=== PATIENT | female | born 1955 | race African-American/Black ===

== ENCOUNTER 2017-08-16 11:56 | Outpatient (CLI) | payer OTHER ==
[2017-08-16] MEDS ORDERED: Gadobenate Dimeglumine 529 MG/1 ML (20ML VIAL) ONE (13:43)
== END 2017-08-16 11:57 | disposition home or self-care (01) ==
LOC: BICMRI 11:56
PROVIDERS: ATTEND Nurse Practitioner Family
DX: M46.96 Unspecified inflammatory spondylopathy, lumbar region (principal); M54.16 Radiculopathy, lumbar region; G95.89 Other specified diseases of spinal cord; M99.83 Other biomechanical lesions of lumbar region
CPT/HCPCS: 72158; A9579

== ENCOUNTER 2017-11-21 10:11 | Outpatient (CLI) | payer OTHER | END 2017-11-21 10:12 | disposition home or self-care (01) | LOC: BICMAMMO 10:11 | PROVIDERS: ATTEND Student in an Organized Health Care Education/Training Program | DX: Z12.31 Encounter for screening mammogram for malignant neoplasm of breast (principal); Z80.3 Family history of malignant neoplasm of breast | CPT/HCPCS: 77067 ==

== ENCOUNTER 2018-12-13 13:35 | Outpatient (CLI) | payer OTHER ==
--- NOTE | 2018-12-13 14:39 | MMO ---
Bilateral MAMMO Bilat Screen DDI. CLINICAL HISTORY: Patient is 63 years old and is seen for screening. The patient has the following family history of breast cancer: maternal aunt, malignant (generic). The patient has no personal history of cancer. VIEWS: The views performed were: bilateral craniocaudal and bilateral mediolateral oblique. FILMS COMPARED: The present examination has been compared to prior imaging studies performed at 11/16/2015 and 11/20/2016. This study has been interpreted with the assistance of computer-aided detection. MAMMOGRAM FINDINGS: There are scattered fibroglandular densities. There are no suspicious masses, suspicious calcifications, or new areas of architectural distortion. IMPRESSION: THERE IS NO MAMMOGRAPHIC EVIDENCE OF MALIGNANCY. A ROUTINE FOLLOW-UP MAMMOGRAM IN 1 YEAR IS RECOMMENDED. ACR BI-RADS Category 1 - Negative MAMMOGRAPHY NOTE: 1. A negative mammogram report should not delay a biopsy if a dominant of clinically suspicious mass is present. 2. Approximately 10% to 15% of breast cancers are not detected by mammography. 3. Adenosis and dense breasts may obscure an underlying neoplasm. Reported by: AMIE VILLAGRAN MD Electonically Signed: [id number]
== END 2018-12-13 13:36 | disposition home or self-care (01) ==
LOC: SCSMAMMO 13:35
PROVIDERS: ATTEND Student in an Organized Health Care Education/Training Program
DX: Z12.31 Encounter for screening mammogram for malignant neoplasm of breast (principal); Z80.3 Family history of malignant neoplasm of breast
CPT/HCPCS: 77067

== ENCOUNTER 2019-12-31 12:41 | Outpatient (CLI) | payer OTHER ==
--- NOTE | 2019-12-31 13:14 | MMO ---
Bilateral MAMMO Bilat Screen DDI. CLINICAL HISTORY: Patient is 64 years old and is seen for screening. The patient has the following family history of breast cancer: maternal aunt, malignant (generic). The patient has no personal history of cancer. VIEWS: The views performed were: bilateral craniocaudal and bilateral mediolateral oblique. FILMS COMPARED: The present examination has been compared to prior imaging studies performed at [facility] on 12/13/2018, and at [facility] on 11/12/2014, 11/16/2015 and 11/20/2016. This study has been interpreted with the assistance of computer-aided detection. MAMMOGRAM FINDINGS: There are scattered fibroglandular densities. There are no suspicious masses, suspicious calcifications, or new areas of architectural distortion. IMPRESSION: THERE IS NO MAMMOGRAPHIC EVIDENCE OF MALIGNANCY. A ROUTINE FOLLOW-UP MAMMOGRAM IN 1 YEAR IS RECOMMENDED. ACR BI-RADS Category 1 - Negative MAMMOGRAPHY NOTE: 1. A negative mammogram report should not delay a biopsy if a dominant of clinically suspicious mass is present. 2. Approximately 10% to 15% of breast cancers are not detected by mammography. 3. Adenosis and dense breasts may obscure an underlying neoplasm. Reported by: EZRA WILKS MD Electonically Signed: [id number]
== END 2019-12-31 12:42 | disposition home or self-care (01) ==
LOC: BICMAMMO 12:41
PROVIDERS: ATTEND Student in an Organized Health Care Education/Training Program
DX: Z12.31 Encounter for screening mammogram for malignant neoplasm of breast (principal); Z80.3 Family history of malignant neoplasm of breast
CPT/HCPCS: 77067

== ENCOUNTER 2020-04-06 10:47 | Outpatient (CLI) | payer OTHER ==
--- NOTE | 2020-04-06 12:18 | MRI ---
MRI lumbar spine noncontrast: HISTORY: Lumbar radicular pain. Low back pain radiates to the right hip and down the right leg. COMPARISON: 08/16/2017. FINDINGS: Appropriate T1 marrow signal intensity of the lumbar vertebra. Lumbar spine vertebral body heights ar e maintained. There is no fracture. Vertebral body hemangioma at L1. Appropriate signal intensity of the paraspinal muscles and solid organs. Note is made of a fatty filum terminale. Conus medullaris terminates at the inferior aspect of L1. No significant STIR hyperintensity to suggest vertebral body edema or ligamentous injury. 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 Redemonstration of a T1 isointense, T2 hyperintense focus along the posterior epidural fat at the L2 level. This lesion measures 0.7 x 0.6 x 0.8 cm. T12-L1:Adequate disc hydration. No posterior disc abnormalities. No significant central canal stenosi s. Mild ligamentum flavum thickening and facet hypertrophy are present. L1-L2:Adequate disc hydration. No posterior disc abnormality. There is no significant central canal s tenosis. There is mild ligamentum flavum thickening and facet hypertrophy. L2-L3:Disc desiccation without significant loss of disc space height. Broad-based disc bulge, ligamen marshal flavum thickening, facet hypertrophy and posterior epidural lesion result in moderate stenosis of the thecal sac. Mild bilateral neural foraminal narrowing. L3-L4:Adequate disc hydration. No significant loss of disc space height. Broad-based disc bulge, liga mentum flavum thickening and facet hypertrophy result in mild to moderate central canal stenosis. Mild to moderate bilateral neural foraminal narrowing. L4-L5:Adequate disc hydration. No significant loss of disc space height. Broad-based disc bulge minim ally contacts the ventral thecal sac. Mild central canal stenosis. There is bilateral ligamentum flavum thickening and facet hypertrophy. Mild to moderate bilateral neural foraminal narrowing. L5-S1:Adequate disc hydration. No posterior disc abnormality. There is bilateral ligamentum flavum th ickening and facet hypertrophy. There is no significant central canal stenosis. Mild bilateral neural foraminal narrowing. IMPRESSION: 1. 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 2. Stable posterior epidural mass at the L2-L3 level. 3. Varying degrees of central canal stenosis and neural foraminal narrowing as detailed above. Transcribed Date/Time: 04/06/2020 12:42 PM
== END 2020-04-06 10:48 | disposition home or self-care (01) ==
LOC: BICMRI 10:47
PROVIDERS: ATTEND Nurse Practitioner Family
DX: M54.16 Radiculopathy, lumbar region (principal); M48.061 Spinal stenosis, lumbar region without neurogenic claudication; M48.07 Spinal stenosis, lumbosacral region; G95.89 Other specified diseases of spinal cord
CPT/HCPCS: 72148

== ENCOUNTER 2020-07-15 09:15 | Inpatient (IN) | payer OTHER ==
[2020-07-19 12:40] VITALS: BMI 46.0
[2020-08-05] MEDS ORDERED: Thrombin 5000 UNITS/5 ML VIAL ONE (08:53)
[2020-08-05] MEDS ORDERED: PHENYLEPHRINE-NS 100 MCG/ML 10 ML SYRINGE ONE (09:25)
[2020-08-05] MEDS ORDERED: Rocuronium Bromide 10 MG/ML (10ML VIAL) ONE (09:25)
[2020-08-05] MEDS ORDERED: Ondansetron PF 4 MG/2 ML Vial ONE (09:25)
[2020-08-05] MEDS ORDERED: ePHEDrine 50 MG/ML VIAL ONE (09:25)
[2020-08-05] MEDS ORDERED: Lidocaine 1% PF 5 ML VIAL ONE (09:25)
[2020-08-05] MEDS ORDERED: Glycopyrrolate 0.2 MG/ML 5 ML SYRINGE ONE (09:25)
[2020-08-05] MEDS ORDERED: PROPOFOL 200 MG/20 ML VIAL ONE (09:25)
[2020-08-05] MEDS ORDERED: Dexamethasone 20 MG/5 ML VIAL ONE (09:25)
[2020-08-05] MEDS ORDERED: Fentanyl 100 MCG/2 ML VIAL ONE ×4 (09:33→13:33)
[2020-08-05] MEDS ORDERED: Bisacodyl 10 MG SUPP PR PRN (09:36)
[2020-08-05] MEDS ORDERED: Mag-Al 1200 mg/1200 mg/30 ML UDCUP PO PRN (09:36)
[2020-08-05] MEDS ORDERED: Milk Of Magnesia 30 ML UDCUP PO PRN (09:36)
[2020-08-05] MEDS ORDERED: Promethazine HCl 25 MG/ML VIAL IM PRN (11:49)
[2020-08-05] MEDS ORDERED: Morphine Sulfate 2 MG/ML SYRINGE SLOW IVP PRN (11:49)
[2020-08-05] MEDS ORDERED: Ondansetron HCl/PF 4 MG/2 ML Vial IVP PRN (11:49)
[2020-08-05] MEDS ORDERED: HYDROmorphone 2 MG/ML VIAL SLOW IVP PRN (11:49)
[2020-08-05] MEDS ORDERED: Promethazine HCl 25 MG/ML VIAL SLOW IVP PRN (11:49)
[2020-08-05] MEDS ORDERED: PACU-Morphine 4MG/ML VIAL SLOW IVP PRN (11:49)
[2020-08-05] MEDS ORDERED: HYDROmorphone 0.5 MG/0.5 ML SYRINGE ONE ×4 (12:17→13:00)
[2020-08-05] MEDS ORDERED: tiZANidine HCl 4 MG TAB ONE (12:48)
[2020-08-05] MEDS: Sodium Chloride 0.9% 1,000 ML IV SCH ×2 (16:16→22:00)
[2020-08-05] MEDS: HYDROcodone/Acetaminophen 7.5/325 mg Tablet PO PRN ×2 (16:16→23:19)
[2020-08-05] MEDS: CEFAZOLIN 2 GM in Premix Bag 1 BAG IVPB SCH (16:18)
[2020-08-05] MEDS: Morphine 2 MG/ML VIAL SLOW IVP PRN ×3 (16:20→23:18)
[2020-08-05] MEDS: tiZANidine HCl 4 MG TAB PO PRN (17:24)
[2020-08-05] MEDS ORDERED: Furosemide 20 MG TAB PO PRN (17:49)
[2020-08-05] MEDS: Acetaminophen 325 MG TAB PO PRN (20:00)
[2020-08-05] MEDS: Acetaminophen/Codeine 30-300mg Tablet PO PRN (20:00)
[2020-08-05] MEDS: Atorvastatin Calcium 10 MG TAB PO SCH (21:34)
[2020-08-05] MEDS: Amitriptyline HCl 100 MG TAB PO SCH (21:34)
[2020-08-05] MEDS: busPIRone HCl 10 MG TAB PO SCH (21:35)
[2020-08-06] MEDS: CEFAZOLIN 2 GM in Premix Bag 1 BAG IVPB SCH (00:54)
[2020-08-06] MEDS: tiZANidine HCl 4 MG TAB PO PRN ×3 (00:54→19:11)
[2020-08-06] MEDS: Levothyroxine Sodium 50 MCG TAB PO SCH (06:24)
[2020-08-06] MEDS: HYDROcodone/Acetaminophen 7.5/325 mg Tablet PO PRN ×2 (08:22→15:09)
[2020-08-06] MEDS: busPIRone HCl 10 MG TAB PO SCH ×2 (08:22→20:24)
[2020-08-06] MEDS: Hydrochlorothiazide 25 MG TAB PO SCH (08:22)
[2020-08-06] MEDS ORDERED: FLU VACC QS2020-21(6MOS UP)/PF 60 MCG/0.5 ML SYRINGE IM ONE (09:00)
[2020-08-06] MEDS: Acetaminophen/Codeine 30-300mg Tablet PO PRN ×2 (12:16→19:11)
[2020-08-06] MEDS: Sodium Chloride 0.9% 1,000 ML IV SCH (15:04)
[2020-08-06] MEDS: Acetaminophen 325 MG TAB PO PRN (15:12)
[2020-08-06] MEDS: Amitriptyline HCl 100 MG TAB PO SCH (20:22)
[2020-08-06] MEDS: Atorvastatin Calcium 10 MG TAB PO SCH (20:22)
[2020-08-07] MEDS: HYDROcodone/Acetaminophen 7.5/325 mg Tablet PO PRN ×3 (00:13→17:23)
[2020-08-07] MEDS: Acetaminophen 325 MG TAB PO PRN ×2 (00:14→20:35)
[2020-08-07] MEDS: Sodium Chloride 0.9% 1,000 ML IV SCH ×2 (04:29→16:11)
[2020-08-07] MEDS: Levothyroxine Sodium 50 MCG TAB PO SCH (06:05)
[2020-08-07] MEDS: busPIRone HCl 10 MG TAB PO SCH ×2 (08:39→20:35)
[2020-08-07] MEDS: Hydrochlorothiazide 25 MG TAB PO SCH (10:32)
[2020-08-07] MEDS: tiZANidine HCl 4 MG TAB PO PRN ×2 (12:43→20:35)
[2020-08-07] MEDS: Amitriptyline HCl 100 MG TAB PO SCH (20:33)
[2020-08-07] MEDS: Acetaminophen/Codeine 30-300mg Tablet PO PRN (20:34)
[2020-08-07] MEDS: Atorvastatin Calcium 10 MG TAB PO SCH (20:35)
[2020-08-08] MEDS: Sodium Chloride 0.9% 1,000 ML IV SCH ×2 (06:14→18:02)
[2020-08-08] MEDS: Levothyroxine Sodium 50 MCG TAB PO SCH (06:44)
[2020-08-08] MEDS: Hydrochlorothiazide 25 MG TAB PO SCH (09:11)
[2020-08-08] MEDS: Acetaminophen/Codeine 30-300mg Tablet PO PRN ×2 (09:11→14:41)
[2020-08-08] MEDS: busPIRone HCl 10 MG TAB PO SCH ×2 (09:11→20:25)
[2020-08-08] MEDS: tiZANidine HCl 4 MG TAB PO PRN ×2 (14:41→21:45)
[2020-08-08] MEDS: HYDROcodone/Acetaminophen 7.5/325 mg Tablet PO PRN (20:23)
[2020-08-08] MEDS: Atorvastatin Calcium 10 MG TAB PO SCH (20:24)
[2020-08-08] MEDS: Amitriptyline HCl 100 MG TAB PO SCH (20:25)
[2020-08-09] MEDS: Levothyroxine Sodium 50 MCG TAB PO SCH (05:06)
[2020-08-09] MEDS: Sodium Chloride 0.9% 1,000 ML IV SCH ×2 (06:29→16:56)
[2020-08-09] MEDS: Acetaminophen/Codeine 30-300mg Tablet PO PRN ×3 (07:02→22:08)
[2020-08-09] MEDS: HYDROcodone/Acetaminophen 7.5/325 mg Tablet PO PRN ×2 (09:14→18:23)
[2020-08-09] MEDS: Hydrochlorothiazide 25 MG TAB PO SCH (09:17)
[2020-08-09] MEDS: busPIRone HCl 10 MG TAB PO SCH ×2 (09:17→21:07)
[2020-08-09] MEDS ORDERED: Acetaminophen 325 MG TAB PO PRN (16:43)
[2020-08-09] MEDS ORDERED: Milk Of Magnesia 30 ML UDCUP PO PRN (16:45)
[2020-08-09] MEDS ORDERED: Mag-Al 1200 mg/1200 mg/30 ML UDCUP PO PRN (16:45)
[2020-08-09] MEDS ORDERED: Bisacodyl 10 MG SUPP PR PRN (16:45)
[2020-08-09] MEDS ORDERED: Furosemide 20 MG TAB PO PRN (16:46)
[2020-08-09] MEDS ORDERED: Morphine 2 MG/ML VIAL SLOW IVP PRN (16:48)
[2020-08-09] MEDS: tiZANidine HCl 4 MG TAB PO PRN (16:54)
[2020-08-09] MEDS: Amitriptyline HCl 100 MG TAB PO SCH (21:08)
[2020-08-09] MEDS: Atorvastatin Calcium 10 MG TAB PO SCH (21:09)
[2020-08-10] MEDS: HYDROcodone/Acetaminophen 7.5/325 mg Tablet PO PRN ×3 (01:50→16:40)
[2020-08-10] MEDS: tiZANidine HCl 4 MG TAB PO PRN ×2 (01:51→21:25)
[2020-08-10] MEDS: Levothyroxine Sodium 50 MCG TAB PO SCH (06:56)
[2020-08-10] MEDS: Sodium Chloride 0.9% 1,000 ML IV SCH ×2 (07:24→19:25)
[2020-08-10] MEDS: Hydrochlorothiazide 25 MG TAB PO SCH (08:25)
[2020-08-10] MEDS: busPIRone HCl 10 MG TAB PO SCH ×2 (08:26→21:22)
[2020-08-10] MEDS: Acetaminophen/Codeine 30-300mg Tablet PO PRN (21:20)
[2020-08-10] MEDS: Amitriptyline HCl 100 MG TAB PO SCH (21:22)
[2020-08-10] MEDS: Atorvastatin Calcium 10 MG TAB PO SCH (21:23)
[2020-08-11] MEDS: Levothyroxine Sodium 50 MCG TAB PO SCH (05:42)
[2020-08-11] MEDS: tiZANidine HCl 4 MG TAB PO PRN ×2 (06:01→16:53)
[2020-08-11] MEDS: busPIRone HCl 10 MG TAB PO SCH ×2 (09:31→21:05)
[2020-08-11] MEDS: Hydrochlorothiazide 25 MG TAB PO SCH (09:31)
[2020-08-11] MEDS: Sodium Chloride 0.9% 1,000 ML IV SCH ×2 (09:31→22:45)
[2020-08-11] MEDS: HYDROcodone/Acetaminophen 7.5/325 mg Tablet PO PRN ×2 (11:36→17:33)
[2020-08-11] MEDS: Amitriptyline HCl 100 MG TAB PO SCH (21:04)
[2020-08-11] MEDS: Atorvastatin Calcium 10 MG TAB PO SCH (21:05)
[2020-08-12] MEDS: HYDROcodone/Acetaminophen 7.5/325 mg Tablet PO PRN ×2 (04:04→18:17)
[2020-08-12] MEDS: Levothyroxine Sodium 50 MCG TAB PO SCH (04:05)
[2020-08-12] MEDS: busPIRone HCl 10 MG TAB PO SCH ×2 (08:24→20:31)
[2020-08-12] MEDS: Acetaminophen/Codeine 30-300mg Tablet PO PRN ×2 (10:28→15:45)
[2020-08-12] MEDS: Hydrochlorothiazide 25 MG TAB PO SCH (10:31)
[2020-08-12] MEDS: Sodium Chloride 0.9% 1,000 ML IV SCH (11:40)
[2020-08-12] MEDS: Amitriptyline HCl 100 MG TAB PO SCH (20:31)
[2020-08-12] MEDS: Atorvastatin Calcium 10 MG TAB PO SCH (20:31)
[2020-08-13] MEDS: Sodium Chloride 0.9% 1,000 ML IV SCH ×2 (00:24→14:35)
[2020-08-13] MEDS: Acetaminophen/Codeine 30-300mg Tablet PO PRN ×2 (02:40→13:54)
[2020-08-13] MEDS: tiZANidine HCl 4 MG TAB PO PRN (05:41)
[2020-08-13] MEDS: Levothyroxine Sodium 50 MCG TAB PO SCH (05:41)
[2020-08-13] MEDS: Hydrochlorothiazide 25 MG TAB PO SCH (08:37)
[2020-08-13] MEDS: busPIRone HCl 10 MG TAB PO SCH (09:09)
[2020-08-13 12:14] VITALS: BP 133/85; TEMP 98.3
== END 2020-08-13 15:08 | DRG 516 ==
LOC: SJJU 08-05 07:39 → SDC 08-05 07:39 → EDSTATUS 08-05 09:15 → SJJU 08-05 09:36 → SDC 08-05 09:36 → SJJU 08-08 19:45 → SDC 08-08 19:45 → SJJU 08-09 05:48 → SDC 08-09 05:48
PROVIDERS: ADMIT Surgery; ATTEND Surgery
PROC: 01NB0ZZ Release Lumbar Nerve, Open Approach (ICD-10-PCS; principal; 2020-08-05)
DX: M48.061 Spinal stenosis, lumbar region without neurogenic claudication (principal); Z20.822 Contact with and (suspected) exposure to COVID-19; I10 Essential (primary) hypertension; E78.5 Hyperlipidemia, unspecified; E03.9 Hypothyroidism, unspecified; E66.9 Obesity, unspecified; F32.9 Major depressive disorder, single episode, unspecified; F41.9 Anxiety disorder, unspecified; Z68.42 Body mass index [BMI] 45.0-49.9, adult; Z90.710 Acquired absence of both cervix and uterus
CPT/HCPCS: 76000; 93970; J0690; J1100; J1170; J2270; J2405; J2704; J3010; J3370; J3490

== ENCOUNTER 2020-08-02 09:53 | Outpatient (CLI) | payer OTHER ==
[2020-07-15 12:14] LABS: Anion Gap 14 mmol/L (10-20); BUN (Urea Nitrogen) 12 mg/dL (9.8-20.1); Calc. Creatinine Clearance 0 mL/min (70-130); Calcium 9.6 mg/dL (7.8-10.44); Carbon Dioxide 30 mmol/L (23-31); Chloride 103 mmol/L (98-107); Glucose 85 mg/dL (80-115); Potassium 4.9 mmol/L (3.5-5.1); Sodium 142 mmol/L (136-145)
[2020-07-15 12:15] LABS: Hemoglobin 12.4 g/dL (12.0-15.5); Mean Corpuscular HGB CONC 30.3 g/dL (32.0-36.0); Mean Corpuscular Volume 75.7 fl (81.6-98.3); Platelet Count 227 10x3/uL (150-450); RBC Distribution Width 16.2 % (11.5-14.5); White Blood Cell (WBC) Count 9.3 10x3/uL (3.5-10.5)
[2020-07-15 12:36] LABS: INR-International Normal Ratio 0.9; PTT 29.5 sec (22.0-33.0); Prothrombin Time 9.7 sec (9.5-12.1)
[2020-07-15 23:10] LABS: SARS-CoV-2 PCR by NAA Not Detected (NotDetected)
--- NOTE | 2020-07-21 15:13 | EKG ---
Test Reason : Blood Pressure : / mmHG Vent. Rate : 067 BPM Atrial Rate : 067 BPM P-R Int : 198 ms QRS Dur : 076 ms QT Int : 430 ms P-R-T Axes : 062 040 062 degrees QTc Int : 454 ms Normal sinus rhythm Low voltage QRS Cannot rule out Anterior infarct , age undetermined Abnormal ECG No previous ECGs available Confirmed by MARGARITA JAMES (2) on 07/21/2020 3:12:55 PM Referred By: [facility] Confirmed By:MARGARITA JAMES
[2020-08-03 01:54] LABS: SARS-CoV-2 PCR by NAA Not Detected (NotDetected)
== END 2020-08-02 09:54 | disposition home or self-care (01) ==
LOC: LABBT 09:53
PROVIDERS: ATTEND Surgery
DX: Z01.818 Encounter for other preprocedural examination (principal); Z01.812 Encounter for preprocedural laboratory examination; M54.16 Radiculopathy, lumbar region; M48.062 Spinal stenosis, lumbar region with neurogenic claudication; Z20.822 Contact with and (suspected) exposure to COVID-19
CPT/HCPCS: 80048; 85027; 85610; 85730; 87635; 93005; 93010; U0003; U0005

== ENCOUNTER 2021-01-20 | Outpatient (CLI) | payer OTHER | END 2021-01-20 10:36 | disposition home or self-care (01) | DX: Z12.31 Encounter for screening mammogram for malignant neoplasm of breast (principal); Z80.3 Family history of malignant neoplasm of breast | CPT/HCPCS: 77063; 77067 ==

== ENCOUNTER 2021-10-26 20:20 | Emergency (ER) | payer OTHER ==
[2021-10-26] MEDS ORDERED: HYDROcodone/Acetaminophen 5/325 mg Tablet ONE (21:52)
== END 2021-10-26 22:07 | disposition home or self-care (01) ==
LOC: ERS 20:20
DX: S63.502A Unspecified sprain of left wrist, initial encounter (principal); E03.9 Hypothyroidism, unspecified; E78.5 Hyperlipidemia, unspecified; E78.00 Pure hypercholesterolemia, unspecified; I10 Essential (primary) hypertension; Z87.891 Personal history of nicotine dependence; W01.0XXA Fall on same level from slipping, tripping and stumbling without subsequent striking against object, initial encounter

== ENCOUNTER 2021-11-24 14:34 | Emergency (ER) | payer OTHER ==
[2021-11-24 16:31] LABS: #Lymphocytes 2.8 thou/uL (1.20-3.40); #Monocytes 1.3 thou/uL (0.11-0.59); #Neutrophils 12.6 thou/uL (1.40-6.50); %Eosinophils 0.1 % (0.0-10.0); %Monocytes 7.6 % (0.0-10.0); %Neutrophils 75.3 % (42.0-75.0); Mean Corpuscular HGB CONC 31.7 g/dL (32.0-36.0); Mean Corpuscular Hemoglobin 25.1 pg (27.0-31.0); Mean Corpuscular Volume 79.4 fL (78.0-98.0); Platelet Count 236 thou/uL (130-400); RBC Distribution Width 15.4 % (11.5-14.5); Red Blood Cell (RBC) Count 4.75 mill/uL (4.20-5.40); White Blood Cell (WBC) Count 16.7 thou/uL (4.8-10.8)
[2021-11-24 16:54] LABS: Chloride 100 mmol/L (98-107); Potassium 3.6 mmol/L (3.5-5.1); Sodium 140 mmol/L (136-145)
[2021-11-24 16:55] LABS: ALT (SGPT) 7 U/L (8-55); AST (SGOT) 12 U/L (5-34); Alkaline Phosphatase 102 U/L (40-110); Anion Gap 17 mmol/L (10-20); BUN (Urea Nitrogen) 9 mg/dL (9.8-20.1); Bilirubin, Total 1.1 mg/dL (0.2-1.2); Calc. Creatinine Clearance 0 mL/min (70-130); Calcium 9.5 mg/dL (7.8-10.44); Carbon Dioxide 27 mmol/L (23-31); Globulin 3.7 g/dL (2.4-3.5); Glucose 120 mg/dL (80-115); Protein, Total 7.7 g/dL (5.8-8.1)
[2021-11-24] MEDS ORDERED: Ketorolac Tromethamine 30 MG/ML VIAL ONE (18:23)
== END 2021-11-24 19:23 | disposition home or self-care (01) ==
LOC: ERS 14:34
DX: M79.642 Pain in left hand (principal); M25.511 Pain in right shoulder; M25.512 Pain in left shoulder; R42 Dizziness and giddiness; M54.2 Cervicalgia; E03.9 Hypothyroidism, unspecified; E78.5 Hyperlipidemia, unspecified; E78.00 Pure hypercholesterolemia, unspecified; I10 Essential (primary) hypertension; Z87.891 Personal history of nicotine dependence
CPT/HCPCS: 36415; 36416; 70450; 71045; 80053; 84484; 85025; 93005; 96372; J1885

== ENCOUNTER 2022-01-27 13:18 | Outpatient (CLI) | payer OTHER | END 2022-01-27 13:19 | disposition home or self-care (01) | LOC: BICMAMMO 13:18 | PROVIDERS: ATTEND Student in an Organized Health Care Education/Training Program | DX: Z12.31 Encounter for screening mammogram for malignant neoplasm of breast (principal); Z80.3 Family history of malignant neoplasm of breast | CPT/HCPCS: 77067 ==

== ENCOUNTER 2022-06-16 14:20 | Outpatient (CLI) | payer OTHER | END 2022-06-16 14:21 | disposition home or self-care (01) | LOC: BICMAMMO 14:20 | PROVIDERS: ATTEND Student in an Organized Health Care Education/Training Program | DX: Z00.00 Encounter for general adult medical examination without abnormal findings (principal); Z13.820 Encounter for screening for osteoporosis; Z78.0 Asymptomatic menopausal state | CPT/HCPCS: 77080 ==

== ENCOUNTER 2022-07-06 06:06 | Day surgery (SDC) | payer MEDICARE, MEDICAID ==
[2022-07-04 13:30] VITALS: BMI 46.8
== END 2022-07-06 08:57 | disposition home or self-care (01) ==
LOC: SDC 06:06
PROVIDERS: ATTEND Internal Medicine Gastroenterology
PROC: 0DBL8ZX Excision of Transverse Colon, Via Natural or Artificial Opening Endoscopic, Diagnostic (ICD-10-PCS; principal; 2022-07-06)
DX: Z12.11 Encounter for screening for malignant neoplasm of colon (principal); D12.3 Benign neoplasm of transverse colon; K57.30 Diverticulosis of large intestine without perforation or abscess without bleeding; E78.00 Pure hypercholesterolemia, unspecified; I10 Essential (primary) hypertension; E03.9 Hypothyroidism, unspecified; Z80.0 Family history of malignant neoplasm of digestive organs; Z79.890 Hormone replacement therapy; Z79.899 Other long term (current) drug therapy; Z88.1 Allergy status to other antibiotic agents
CPT/HCPCS: 88305

== ENCOUNTER 2022-09-20 10:45 | Outpatient (CLI) | payer OTHER | END 2022-09-20 10:46 | disposition home or self-care (01) | LOC: BICRAD 10:45 | PROVIDERS: ATTEND Family Medicine | DX: M25.562 Pain in left knee (principal); M17.12 Unilateral primary osteoarthritis, left knee ==

== ENCOUNTER 2023-07-27 11:16 | Outpatient (CLI) | payer OTHER, MEDICAID | END 2023-07-27 11:17 | disposition home or self-care (01) | LOC: BICRAD 11:16 | PROVIDERS: ATTEND Pediatrics | DX: M17.12 Unilateral primary osteoarthritis, left knee (principal) ==

== ENCOUNTER → 2024-04-30 | Outpatient (CLI) | payer OTHER, MEDICAID | LOC: BICMAMMO 11:33 | PROVIDERS: ATTEND Student in an Organized Health Care Education/Training Program | DX: Z12.31 Encounter for screening mammogram for malignant neoplasm of breast (principal); Z80.3 Family history of malignant neoplasm of breast | CPT/HCPCS: 77063; 77067 ==

== ENCOUNTER 2025-01-19 11:23 | Outpatient (CLI) | payer OTHER ==
[2025-01-19 13:17] LABS: #Basophils 0.04 10x3/uL (0.0-0.2); #Eosinophils 0.12 10x3/uL (0.0-0.7); #Monocytes 0.75 10x3/uL (0.11-0.59); #Neutrophils 5.90 10x3/uL (1.40-6.50); %Basophils 0.4 % (0.0-1.0); %Eosinophils 1.2 % (0.0-10.0); %Lymphocytes 29.0 % (21.0-51.0); %Monocytes 7.8 % (0.0-10.0); %Neutrophils 61.3 % (42.0-75.0); Hematocrit 32.4 % (36.0-47.0); Hemoglobin 9.7 g/dL (12.0-16.0); Mean Corpuscular Hemoglobin 19.1 pg (27.0-31.0); Mean Corpuscular Volume 63.9 fL (78.0-98.0); Platelet Count 299 10x3/uL (130-400); Red Blood Cell (RBC) Count 5.07 mill/uL (4.20-5.40); White Blood Cell (WBC) Count 9.64 10x3/uL (4.8-10.8)
[2025-01-19 13:27] LABS: Anion Gap 16 mmol/L (10-20); BUN (Urea Nitrogen) 14 mg/dL (9.8-20.1); Calc. Creatinine Clearance 0 mL/min (70-130); Calcium 9.1 mg/dL (7.8-10.44); Carbon Dioxide 27 mmol/L (23-31); Chloride 102 mmol/L (98-107); Glucose 91 mg/dL (80-115); Potassium 3.8 mmol/L (3.5-5.1); Sodium 141 mmol/L (136-145)
[2025-01-19 14:25] LABS: Anisocytosis SLIGHT = 6-15 cells HPF (0-5); Macrocytosis SLIGHT = 6-15 cells HPF (0-5); Ovalocytes SLIGHT = 2-5 cells HPF (0-1); Platelet Adequacy Comment Platelets Normal; Polychromasia SLIGHT = 2-3 cells HPF (0-2); Target Cells MODERATE= 6-15 cells HPF (0-1)
== END 2025-01-19 11:24 | disposition home or self-care (01) ==
LOC: LABBT 11:23
PROVIDERS: ATTEND Neurological Surgery
DX: Z01.818 Encounter for other preprocedural examination (principal); M47.12 Other spondylosis with myelopathy, cervical region
CPT/HCPCS: 80048; 85025

== ENCOUNTER 2025-01-26 06:17 | Inpatient (IN) | payer OTHER, MEDICAID ==
[2025-01-19 11:40] VITALS: BMI 47.0
[2025-01-26] MEDS ORDERED: PROPOFOL 20 ML ONE (07:35)
[2025-01-26] MEDS ORDERED: fentaNYL PF 100 MCG/2 ML SYRINGE ONE (07:35)
[2025-01-26] MEDS ORDERED: Rocuronium Bromide 10 MG/ML (10ML VIAL) ONE (07:37)
[2025-01-26] MEDS ORDERED: Ondansetron PF 4 MG/2 ML Vial ONE (07:37)
[2025-01-26] MEDS ORDERED: Lidocaine 1% PF 5 ML VIAL ONE (07:37)
[2025-01-26] MEDS ORDERED: CEFAZOLIN 2 GM VIAL ONE (07:40)
[2025-01-26] MEDS ORDERED: Glycopyrrolate 0.2 MG/ML 5 ML SYRINGE ONE (09:08)
[2025-01-26] MEDS ORDERED: SUGAMMADEX SODIUM 200 MG/2 ML VIAL ONE ×2 (09:11→09:14)
[2025-01-26] MEDS ORDERED: PHENYLEPHRINE-NS 100 MCG/ML 10 ML SYRINGE ONE (09:13)
[2025-01-26] MEDS ORDERED: Acetaminophen 325 MG TAB PO PRN (09:23)
[2025-01-26] MEDS ORDERED: Ondansetron PF 4 MG/2 ML Vial IVP PRN (09:23)
[2025-01-26] MEDS ORDERED: Mag-Al 1200 mg/1200 mg/30 ML UDCUP PO PRN (09:23)
[2025-01-26] MEDS ORDERED: diphenhydrAMINE 50 MG/ML VIAL IVP PRN (09:23)
[2025-01-26] MEDS ORDERED: Cyclobenzaprine 10 MG TAB PO PRN (09:23)
[2025-01-26] MEDS ORDERED: Milk Of Magnesia 30 ML UDCUP PO PRN (09:23)
[2025-01-26] MEDS ORDERED: HYDROmorphone 0.5 MG/0.5 ML SYRINGE ONE (10:10)
[2025-01-26] MEDS: HYDROcodone/Acetaminophen 10/325 mg Tablet PO PRN (15:41)
[2025-01-26] MEDS: hydrALAZINE 20 MG/ML VIAL SLOW IVP PRN (17:30)
[2025-01-26] MEDS: Sertraline 25 MG TAB PO SCH (21:00)
[2025-01-26] MEDS ORDERED: Sertraline 100 MG TAB PO SCH (21:00)
[2025-01-26] MEDS ORDERED: Simvastatin 20 MG TAB PO SCH (21:00)
[2025-01-27 16:07] VITALS: BMI 47.0
[2025-01-28 23:04] VITALS: BP 136/89; TEMP 98.3
== END 2025-01-29 02:05 | DRG 473 ==
LOC: SDC 06:17 → SURG B 11:38 → OBSVTOIN 01-27 15:57
PROVIDERS: ADMIT Neurological Surgery; ATTEND Neurological Surgery
PROC: 0RG20A0 Fusion of 2 or more Cervical Vertebral Joints with Interbody Fusion Device, Anterior Approach, Anterior Column, Open Approach (ICD-10-PCS; principal; 2025-01-27)
PROC: 0RB30ZZ Excision of Cervical Vertebral Disc, Open Approach (ICD-10-PCS; 2025-01-27)
DX: M47.12 Other spondylosis with myelopathy, cervical region (principal); F41.9 Anxiety disorder, unspecified; I10 Essential (primary) hypertension; E78.5 Hyperlipidemia, unspecified; E03.9 Hypothyroidism, unspecified; M19.90 Unspecified osteoarthritis, unspecified site; E66.01 Morbid (severe) obesity due to excess calories; F10.90 Alcohol use, unspecified, uncomplicated; F32.A Depression, unspecified; Z79.899 Other long term (current) drug therapy; Z98.890 Other specified postprocedural states; Z90.710 Acquired absence of both cervix and uterus; Z86.0100 Personal history of colon polyps, unspecified; Z87.891 Personal history of nicotine dependence; Z97.2 Presence of dental prosthetic device (complete) (partial)
CPT/HCPCS: C1713; J0360; J1100; J1171; J2270; J2405; J2704; J3010; J7030; J7050